=== PATIENT | male | born 1960 | race African-American/Black ===

== ENCOUNTER 2017-01-14 14:32 | Emergency (ER) | payer MEDICAID ==
[~2017-01-14] VITALS: Ht 170.2 cm; Wt 69.9 kg
[2017-01-14] MEDS ORDERED: TRAMADOL HCL50 MG ORAL (15:22)
--- NOTE | 2017-01-14 15:24 | Emergency Room Report ---
History of Present Illness General Chief Complaint: Lower Back Pain or Injury Source: Patient Present Illness HPI This is a 56-year-old male with a history of chronic back pain complaints of right-sided back pain. He states it has been worsening over the past several days and notes it is now radiating down his right leg. He states pain is currently 7/10 in severity and hasn't taken medication for it. He denies numbness, tingling, loss of sensation. He denies anesthesia, change in bowel or bladder habits, numbness, tingling, loss of sensation. Allergies: Coded Allergies: No Known Allergies (Unverified , 01/14/17) Patient History Reviewed Nursing Documentation: PMH: Agreed, PSxH: Agreed Review of Systems Musculoskeletal: Reports: back pain All Other Systems: negative except mentioned in HPI Physical Exam Vital Signs Date Time Temp Pulse Resp B/P (MAP) Pulse Ox O2 Delivery O2 Flow Rate FiO2 01/14/17 14:57 97.3 64 18 130/72 99 Room Air Sp02 EP Interpretation: reviewed, normal General Appearance: no apparent distress, alert, GCS 15, non-toxic Head: normocephalic, atraumatic Eyes: bilateral eye normal inspection, bilateral eye PERRL ENT: hearing grossly normal, normal pharynx, no angioedema, normal voice Neck: full range of motion, supple/symm/no masses Respiratory: chest non-tender, lungs clear, normal breath sounds, speaking full sentences Cardiovascular #1: regular rate, rhythm, no edema Cardiovascular #2: 2+ carotid (R), 2+ carotid (L), 2+ radial (R), 2+ radial (L) , 2+ dorsalis pedis (R), 2+ dorsalis pedis (L) Gastrointestinal: normal bowel sounds, non tender, soft, non-distended, no guarding, no rebound Rectal: deferred Genitourinary: normal inspection, no CVA tenderness Musculoskeletal: back normal, gait/station normal, normal range of motion, non- tender, calf tenderness, other - no midline tenderness, tenderness the patient the muscular areas of the right lower back Neurologic: alert, oriented x3, responsive, motor strength/tone normal, sensory intact, speech normal, other - 5 out of 5 strength in bilateral LE, NVI Psychiatric: judgement/insight normal, memory normal, mood/affect normal, no suicidal/homicidal ideation Reflexes: 3+ bicep (R), 3+ bicep (L), 3+ tricep (R), 3+ tricep (L), 3+ knee (R) , 3+ knee (L) Skin: normal color, no rash, warm/dry, well hydrated, other - no overlying skin changes Lymphatic: no adenopathy Medical Decision Making PA Attestation Supervising physician is Dr. Thayer Diagnostic Impression: Primary Impression: Low back pain Additional Impression: Right sided sciatica ER Course Low index of Suspicion for cauda equina. Showed chronic back pain now radiating down his right lower extremity consistent with right-sided sciatica. Patient has no focal deficits, 5 out of 5 strength in bilateral lower extremities. He is neurovascularly intact. He is discharged home with tramadol and instructed to follow up with PCP for physical therapy. Patient understands and is agreeable to plan Last Vital Signs Date Time Temp Pulse Resp B/P (MAP) Pulse Ox O2 Delivery O2 Flow Rate FiO2 01/14/17 14:57 97.3 64 18 130/72 99 Room Air Status: improved Disposition: HOME, SELF-CARE Condition: Stable Scripts Tramadol Hcl* (ULTRAM*) 50 Mg Tablet 50 MG ORAL Q6H Y for For Pain, #30 TAB 0 Refills Prov: Zunilda Almaraz 01/14/17 Patient Instructions: Low Back Sprain With [facility] Zunilda Almaraz Jan 14, 2017 15:24
[2017-01-14 15:32] VITALS: BP 132/75
[2017-01-14 15:38] VITALS: BP 132/75
== END 2017-01-14 15:39 | disposition home or self-care (01) ==
LOC: EMR 15:20
DX: M54.41 Lumbago with sciatica, right side (principal)
CPT/HCPCS: 99283

== ENCOUNTER 2018-01-02 15:05 | Emergency (ER) | payer MEDICAID ==
[~2018-01-02] VITALS: Ht 167.6 cm; Wt 72.6 kg
[~2018-01-02 15:05] MED LIST: TRAMADOL HCL50 MG ORAL
[2018-01-02 15:14] VITALS: BP 136/82
--- NOTE | 2018-01-02 15:23 | Emergency Room Report ---
History of Present Illness General Chief Complaint: Skin Rash/Abscess Source: Patient, Medical Record Present Illness HPI 57-year-old male with a history of heavy tobacco smoking here complaining of 3 days of pain in the right upper molar teeth. Patient has not been tetanus lately, reports pus drainage from the right gum, and reports that his right upper molars fell off. Complains of some pain without radiation, tingling or numbness. Denies fever and chills, shortness of breath, palpitation, chest pain. Patient also complains of few days chronic dry cough exacerbated with smoking. Denies all other URI symptoms has taken ibuprofen with minimal relief for the pain Allergies: Coded Allergies: No Known Allergies (Unverified , 01/02/18) Patient History Past Medical History: see triage record Pertinent Family History: none, unable to obtain Social History: Reports: smoking - tobacco Immunizations: UTD Reviewed Nursing Documentation: PMH: Agreed; PSxH: Agreed Nursing Documentation-PMH Past Medical History: No History, Except For Review of Systems All Other Systems: negative except mentioned in HPI Physical Exam Vital Signs Date Time Temp Pulse Resp B/P (MAP) Pulse Ox O2 Delivery O2 Flow Rate FiO2 01/02/18 15:08 99.7 78 16 136/82 95 Room Air Sp02 EP Interpretation: reviewed, normal General Appearance: normal inspection, well appearing, no apparent distress, alert Head: normocephalic, atraumatic Eyes: bilateral eye normal inspection, bilateral eye PERRL ENT: hearing grossly normal, normal pharynx, uvula midline, other - Edema and erythema with pus drainage at the right upper molars and right upper molar lungs no longer attached. Neck: normal inspection, full range of motion, supple Respiratory: normal inspection, chest non-tender, lungs clear, no rhonchi, no wheezing Cardiovascular #1: normal inspection, regular rate, rhythm, no edema, no gallop Gastrointestinal: normal inspection, normal bowel sounds, soft Rectal: deferred Genitourinary: deferred Musculoskeletal: normal inspection, back normal, gait/station normal, normal range of motion Neurologic: normal inspection, oriented x3, responsive Psychiatric: normal inspection, judgement/insight normal, memory normal Skin: normal inspection, no rash, warm/dry, palpation normal, well hydrated, normal turgor Lymphatic: normal inspection, no adenopathy Medical Decision Making PA Attestation DIAGNOSES and treatment plans were reviewed and discussed with my supervising physician Dr. Moreau Diagnostic Impression: Primary Impression: Dental abscess Additional Impressions: URI (upper respiratory infection) Tobacco abuse ER Course 57-year-old male with a history of heavy tobacco smoking here complaining of 3 days of pain in the right upper molar teeth. Patient has not been tetanus lately, reports pus drainage from the right gum, and reports that his right upper molars fell off. Complains of some pain without radiation, tingling or numbness. Denies fever and chills, shortness of breath, palpitation, chest pain. Patient also complains of few days chronic dry cough exacerbated with smoking. Denies all other URI symptoms has taken ibuprofen with minimal relief for the pain Ddx considered but are not limited to Dental abscess, URI, bronchitis Vital signs: are WNL, pt. is afebrile H&PE are most consistent with dental abscess, URI, tobacco abuse ORDERS: amoxicillin 500, ibuprofen 600, adults tussin cough syrup ED INTERVENTIONS: None required at this time. DISCHARGE: At this time pt. is stable for d/c to home. Will provide printed patient care instructions, and any necessary prescriptions. Care plan and follow up instructions have been discussed with the patient prior to discharge. follow with dentist, avoid eating and drinking with the affected site, smoking cessation advised Last Vital Signs Date Time Temp Pulse Resp B/P (MAP) Pulse Ox O2 Delivery O2 Flow Rate FiO2 01/02/18 15:14 99.7 78 16 136/82 95 Room Air Disposition: HOME, SELF-CARE Condition: Stable Scripts Guaifenesin (Adult Tussin Chest Congestion) 100 Mg/5 Ml Liquid 5 ML ORAL Q4H, #100 ML Prov: Monse Jacques 01/02/18 Ibuprofen* (MOTRIN*) 600 Mg Tablet 600 MG ORAL BID, #30 TAB 0 Refills Prov: Monse Jacques 01/02/18 Amoxicillin* (AMOXIL*) 500 Mg Capsule 500 MG ORAL EVERY 8 HOURS for 7 Days, #21 CAP Prov: Monse Jacques 01/02/18 Patient Instructions: Dental Abscess, [id number], Tobacco Use Disorder, Upper Respiratory Infection, Adult, [id number] Additional Instructions: take medication as directed, follow-up with dentist, avoid biting with the effected side, avoid hot and cold beverages. Monse Jacques Jan 02, 2018 15:23
[2018-01-02] MEDS ORDERED: IBUPROFEN600 MG ORAL (15:25)
[2018-01-02] MEDS ORDERED: AMOXICILLIN500 MG ORAL (15:25)
[2018-01-02] MEDS ORDERED: ADULT TUSS100 MG/5 M ORAL (15:25)
== END 2018-01-02 15:30 | disposition home or self-care (01) ==
LOC: EMR 15:26
DX: K04.7 Periapical abscess without sinus (principal); J06.9 Acute upper respiratory infection, unspecified; Z72.0 Tobacco use
CPT/HCPCS: 99283